=== PATIENT | male | born 1995 | race Caucasian/White ===

== ENCOUNTER → 2016-06-10 | Outpatient (CLI) | payer BC ==
[~2016-06-10] MED LIST: PROVENTIL0.09 MG/A1 IH; ZYRTEC 10MG10 MG PO
== END ==
LOC: BHSO 13:56
DX: F32.1 Major depressive disorder, single episode, moderate (principal)

== ENCOUNTER → 2016-06-17 | Outpatient (CLI) | payer BC | LOC: BHSO 14:13 | DX: F33.1 Major depressive disorder, recurrent, moderate (principal) ==

== ENCOUNTER → 2016-10-03 | Outpatient (CLI) | payer BC | LOC: BHSO 13:07 | DX: F33.1 Major depressive disorder, recurrent, moderate (principal) ==